=== PATIENT | male | born 1965 | race Caucasian/White ===

== ENCOUNTER 2020-11-18 15:43 | Emergency (ER) | payer MEDICARE, MEDICAID ==
[~2020-11-18] VITALS: Ht 175.3 cm; Wt 85.0 kg
--- NOTE | 2020-11-18 15:48 | NUR ---
PT brought in by elsy from [facility] with chief complaint of cp starting at 1515 today, pt also reports recently off subxone for three days.
[2020-11-18] MEDS ORDERED: BUPRENORPHINE/NALOXONE 2-0.5MG SL STA (16:21)
[2020-11-18 16:23] LABS: BASOPHILS % (AUTO) 0 % (0-1); EOSINOPHILS % (AUTO) 1 % (1-7); LYMPHOCYTES % (AUTO) 29 % (22-44); MEAN CORPUSCULAR HEMOGLOBIN 31.8 pg (27.5-34.5); MEAN CORPUSCULAR HGB CONC 34.6 g/dL (33.2-36.2); MEAN PLATELET VOLUME 6.6 fL (7.4-10.4); MONOCYTES % (AUTO) 8 % (2-9); NEUTROPHILS % (AUTO) 62 % (42-75); PLATELET COUNT 328 x10^3/uL (130-400); RED BLOOD COUNT 4.48 x10^6/uL (4.38-5.82)
[2020-11-18] MEDS ORDERED: SODIUM CHLORIDE 0.9% 1,000ML IVBOLUS ONE (16:30)
[2020-11-18] MEDS ORDERED: SODIUM CHLORIDE FLUSH 10ML SYR IVF ONE (16:30)
[2020-11-18] MEDS ORDERED: PLEASE ENTER ALLERGIES MC SCH (16:30)
[2020-11-18 16:35] LABS: ALBUMIN 3.4 g/dL (3.4-5.0); ANION GAP 5 mmol/L (5-15); CHLORIDE 108 mmol/L (98-107)
[2020-11-18 16:39] LABS: TROPONIN I < 0.015 ng/mL (0.000-0.045)
--- NOTE | 2020-11-18 18:20 | NUR ---
ERP AT FOR RECHECK
--- NOTE | 2020-11-18 18:42 | NUR ---
PT RESTING ON GERSON BEAR/VSS. CALL LIGHT WITHIN REACH. COMFORT MEASURES PROVIDED. PT UPDATED ON POC
--- NOTE | 2020-11-18 18:45 | NUR ---
REPORT TO PIPE DOYLE
--- NOTE | 2020-11-18 18:47 | NUR ---
BEDSIDE REPORT RECEIVED FROM JERRY BETANCUR
[2020-11-18 19:36] VITALS: BP 124/65
--- NOTE | 2020-11-18 19:36 | NUR ---
Patient given discharge instructions and they have confirmed that they understand the instructions. Patient ambulatory with steady gait. NAD, all questions answered appropriately, denies additional needs at this time. No personal belongings left in room after discharge.
[2020-11-19] MEDS ORDERED: BUPRENORPHINE/NALOXONE 2-0.5MG SL SCH (09:00)
== END 2020-11-18 19:38 | disposition home or self-care (01) ==
LOC: ED 19:30
DX: R07.2 Precordial pain (principal); F11.13 Opioid abuse with withdrawal; F17.200 Nicotine dependence, unspecified, uncomplicated
CPT/HCPCS: 36415; 71045; 80048; 82040; 84484; 85025; 93005; 96360; 96361; 99285; J0572; J7030